=== PATIENT | male | born 1990 | race Two or more races ===

== ENCOUNTER 2017-06-23 12:33 | Day surgery (SDC) | payer OTHER ==
[~2017-06-23 12:33] MED LIST: Buffered Lidocaine 0.9% SYRIN* 5 ML/SYR SYRINGE INTRADERM ONE
[2017-06-23] MEDS ORDERED: fentaNYL* 50 MCG/ML 2 ML VIAL (100 MCG VIAL) ONE (15:03)
[2017-06-23] MEDS ORDERED: Midazolam* 1 MG/ML 2 ML VIAL (2 MG) ONE (15:03)
[2017-06-23] MEDS ORDERED: Propofol* 10 MG/ML 20 ML BTL IV PUSH ONE (15:23)
[2017-06-23] MEDS ORDERED: Lidocaine 2% PF * 5 ML VIAL ONE (15:23)
[2017-06-23] MEDS ORDERED: Ondansetron INJ* 2 MG/ML VIAL ONE (15:26)
[2017-06-23 16:37] VITALS: BP 136/71
--- NOTE | 2017-06-24 12:20 | PRO ---
CC: Dr. Paul Galloway; Dr. Julio César Gill PROCEDURE REPORT: DATE OF PROCEDURE: 06/23/17 PROCEDURE: Esophagogastroduodenoscopy with biopsy. ASSISTANTS: Rosa Lei RN and Carolina Strong RN. REFERRING PHYSICIAN: Julio César Gill MD ANESTHESIA TYPE: MAC. INDICATIONS: A 26-year-old morbidly obese gentleman with complaint of heartburn, regurgitation, and intermittent dysphagia with sensation of food sticking in the throat. He has not been taking any ant acids or proton pump inhibitors at present. The patient is also planning to undergo bariatric surgery in next few months. PROCEDURE DESCRIPTION: After explaining the risks, benefits, alternatives as well as complications o f the procedure, written consent was obtained from the patient. With the patient in left lateral decu bitus position, medications were administered by the anesthesiologist. Olympus gastroscope was inser chantal into the mouth and directed into the esophagus, stomach and all the way up to second portion of d uodenum without difficulty. Mucosa was examined both on insertion and withdrawal. Retroflexion was p erformed at the gastric fundus. The findings are given as below. The patient tolerated the procedure well and was sent to Recovery in stable condition. FINDINGS: Esophagus: The mucosa was now without erosions or ulcerations. Z-line was regular and loc ated at 40 cm from incisors. Stomach: Mild, but diffuse erythema in the gastric antrum, biopsies were taken to rule out H. pylori infection. No erosions or ulcerations are found. Retroflexion of the gastric fundus revealed gibson l appearing mucosa and cardia. Duodenum: The mucosa was normal without erosions or ulcerations up to second portion. IMMEDIATE COMPLICATION: None. BLOOD LOSS: Trace. IMPRESSION: Mild antral gastritis, biopsied. RECOMMENDATIONS: 1. Advised to start omeprazole 20 mg daily before breakfast for the next 2 to 3 months. 2. Check pathology results. 3. If symptoms persist, followup in our office otherwise with primary care provider. [id number]/[facility] #: [id number]
== END 2017-06-23 16:30 | disposition home or self-care (01) ==
LOC: OR 12:33
PROVIDERS: ATTEND Internal Medicine Gastroenterology
DX: K21.9 Gastro-esophageal reflux disease without esophagitis (principal); E66.01 Morbid (severe) obesity due to excess calories; R13.14 Dysphagia, pharyngoesophageal phase; R19.7 Diarrhea, unspecified; G47.33 Obstructive sleep apnea (adult) (pediatric); Z68.44 Body mass index [BMI] 60.0-69.9, adult
CPT/HCPCS: 88305; J2250; J2405; J2704; J3010

== ENCOUNTER 2018-10-31 09:46 | Day surgery (SDC) | payer OTHER ==
[~2018-10-31 09:46] MED LIST changes: -Buffered Lidocaine 0.9% SYRIN* 5 ML/SYR SYRINGE INTRADERM ONE; +Buffered Lidocaine 1% SYRIN* 1 ML/SYRINGE INTRADERM ONE; +Lactated Ringers 1000 ML Bag* 1,000 ML IV SCH; +Sodium Citrate/Citric Acid* 15 ML UDC PO ONE
[2018-10-31] MEDS ORDERED: Heparin VIAL(*) 5000 UNITS/ML VIAL (FIVE THOUSAND) ONE (10:14)
[2018-10-31] MEDS ORDERED: Clindamycin 900 MG IVPREMIX(* 900 MG/50 ML SDV IV ONE (10:14)
[2018-10-31] MEDS ORDERED: Sodium Citrate/Citric Acid* 15 ML UDC ONE (10:14)
[2018-10-31] MEDS ORDERED: Buffered Lidocaine 1% SYRIN* 1 ML/SYRINGE INTRADERM ONE (10:14)
[2018-10-31] MEDS ORDERED: Ciprofloxacin 400MG IVPREMIX(* 400 MG/200 ML BAG ONE (10:14)
[2018-10-31] MEDS ORDERED: Bupivacaine 0.25% EPI 200,000* 30 ML SDV ONE ×2 (11:47→12:50)
[2018-10-31] MEDS ORDERED: Methylene Blue 0.5 %* 50 MG/10 ML AMP IV ONE (11:47)
[2018-10-31] MEDS ORDERED: Sugammadex * 500 MG/5 ML VIAL IV PUSH ONE (12:20)
[2018-10-31] MEDS ORDERED: Propofol* 10 MG/ML 20 ML BTL ONE (12:20)
[2018-10-31] MEDS ORDERED: fentaNYL* 50 MCG/ML 2 ML VIAL (100 MCG VIAL) ONE ×2 (12:20→14:29)
[2018-10-31] MEDS ORDERED: Rocuronium* 10 MG/ML VIAL ONE (12:22)
[2018-10-31] MEDS ORDERED: KETAMINE HCL* 50 MG/ML 10 ML VIAL ONE (12:47)
[2018-10-31] MEDS ORDERED: Ketorolac INJ* 30 MG/ML 1 ML VIAL ONE (12:50)
[2018-10-31] MEDS ORDERED: Ondansetron INJ* 2 MG/ML VIAL ONE (12:50)
[2018-10-31] MEDS ORDERED: Dexamethasone IV* 4 MG/ML 1 ML (4 MG) ONE (12:50)
[2018-10-31] MEDS ORDERED: Acetaminophen IV 1GM/100ML * 1,000 MG/100 ML VIAL IVPB ONE (14:24)
[2018-10-31] MEDS ORDERED: DiMENhydriNATE IV* 50 MG/ML VIAL IV PUSH PRN (14:24)
[2018-10-31] MEDS ORDERED: Naloxone* 0.4 MG/ML 1 ML VIAL IV PRN (14:24)
--- NOTE | 2018-10-31 14:28 | OP ---
Operative Report - Blank - Operative Report Date of Operation: 10/31/18 Note: Brief Operative Note Preop Dx: Morbid obesity Postop Dx: same Procedure: Laparoscopy Anesthesia: GET Surgeon: Jackie Manager Of School: DESI Dugan; MANUEL Sanderson Fluids: 2 liters RL EBL: < 20 ml Specimen: none Drains: none Findings: dictated
[2018-10-31] MEDS ORDERED: Acetaminophen IV 1GM/100ML * 100 ML ONE (14:29)
[2018-10-31] MEDS ORDERED: DiMENhydriNATE IV* 50 MG/ML VIAL ONE (14:29)
[2018-10-31] MEDS ORDERED: oxyCODONE/Acetamin 5/325 MG* TAB PO PRN (14:30)
[2018-10-31] MEDS: fentaNYL* 50 MCG/ML 2 ML VIAL (100 MCG VIAL) IV PRN ×4 (14:31→15:17)
[2018-10-31 16:02] VITALS: BP 123/66
--- NOTE | 2018-10-31 23:58 | OP ---
CC: [facility] for Metabolic and Bariatric Surgery; Primary Care Physician * DATE OF OPERATION: 10/31/18 - ROOM #AA-[id number] DATE OF : [birth year] SURGEON: Reg Mejia MD ASSISTANTS: DESI Otero and PA sabra, Kin. ANESTHESIOLOGIST: Dr. Odom. ANESTHESIA: General anesthesia. PRE-OP DIAGNOSIS: Clinically severe obesity. POST-OP DIAGNOSIS: Clinically severe obesity. OPERATIVE PROCEDURE: Laparoscopy and no additional procedures given the patient 's body habitus. ESTIMATED BLOOD LOSS: Less than 20 cc of blood loss. FLUIDS: 2 L of crystalloid fluid given. SPECIMEN: None. DRAINS: None. DESCRIPTION OF PROCEDURE: The patient was identified in the preoperative area, the case was discussed with him again and the patient was marked and consent was signed. He was then taken to the operating room, placed on the operating table in supine position. Preoperative antibiotics were given. Sequential devices were placed in bilateral lower extremities. General anesthesia was induced. The patient's abdomen was prepped and draped in the standard surgical fashion after clipping hair and a time-out was performed. Folds of the umbilicus were elevated anteriorly and a Veress needle inserted into the abdominal cavity, which was then allowed to insufflate to a pressure of 15 mmHg. The patient tolerated the insufflation well. Aline between the xiphoid and the umbilicus just left of midline, a 12 mm trocar on an Optiview was then inserted. Laparoscope was inserted through this. There was significant torque on the abdominal wall. We had to look around in the abdomen to see a significant amount of omentum and a very large liver. We then placed a 12 mm and a 5 mm in the left upper quadrant. We then placed a 12 mm in the right upper quadrant. The patient was placed in a steep reverse Trendelenburg. Again, a very large omentum was identified. There was no free fluid. The left lateral lobe of the liver extended beyond the spleen, which was also enlarged. Next, a Cassy retractor was inserted through the subxiphoid incision and the liver which was bulky was attempted to be retracted the best we could anteriorly into the right. We did move this on a couple of occasions just to get a good view. There was no injury to the liver upon doing this. We were able to see the angle of His and dissected this bluntly mostly, but also utilized some scissoring to see best the left crura. We could see the diaphragm at the site and we could move the spleen somewhat laterally, but overall this was very difficult and poor visualization. I placed another 12 mm trocar in the left upper quadrant, hoping to find a better access site for visualization and this was no better. Significant torque on the abdominal wall was also addressed with changing of the trocars and placing them in alternate ways to help with this and another 5 mm trocar was placed in the right upper quadrant. Next, the transverse colon was identified, this was retracted anteriorly and the ligament of Treitz was identified. We counted off approximately 50 cm to see how the small bowel would come up to the proximal stomach. This seemed fair enough, but again was complicated with the ability to retract given the patient's body habitus and the abdominal wall. We did place the pressure of 17 mmHg for the abdominal gas and again, this proved no better and at this point, I felt that it would be more prudent to stop the procedure and make a second attempt after the patient made another attempt at more significant weight loss. The Cassy retractor was removed. The liver fell back into its normal positioning. There was no bleeding. Hemostasis was excellent. We allowed the abdomen to collapse. Trocars were removed under direct vision. All incisions were reapproximated with 4-0 Monocryl subcuticular sutures followed by Steri- Strips and sterile dressing. The patient was woken up and transferred to the PACU in stable condition. [id number]/[facility] #: [id number] ALIX
[2018-11-01] MEDS ORDERED: oxyCODONE/Acetamin 5/325 MG* TAB PO PRN (14:17)
[2018-11-01] MEDS ORDERED: Naloxone* 0.4 MG/ML 1 ML VIAL IV PRN (14:17)
== END 2018-10-31 16:32 | disposition home or self-care (01) ==
LOC: OR 09:46 → AA 09:46 → UNDOADMIN 09:46 → OR 16:32
PROVIDERS: ATTEND Surgery
DX: E66.01 Morbid (severe) obesity due to excess calories (principal); Z53.09 Procedure and treatment not carried out because of other contraindication; Z68.44 Body mass index [BMI] 60.0-69.9, adult; I10 Essential (primary) hypertension; G47.33 Obstructive sleep apnea (adult) (pediatric)
CPT/HCPCS: 49320; A9270-GY; J0744; J1100; J1240; J1644; J1885; J2405; J2704; J3010

== ENCOUNTER 2019-05-28 07:30 | Inpatient (IN) | payer OTHER ==
[2019-09-24] MEDS ORDERED: Buffered Lidocaine 1% SYRIN* 1 ML/SYRINGE INTRADERM ONE (11:47)
[2019-09-25] MEDS ORDERED: Dexamethasone IV* 4 MG/ML 1 ML (4 MG) IV SLOW PU ONE (06:00)
[2019-09-25] MEDS ORDERED: Famotidine IV* 10 MG/ML 2 ML (20 mg) IV ONE (06:00)
[2019-09-25] MEDS ORDERED: Ondansetron INJ* 2 MG/ML VIAL IV ONE (06:00)
[2019-09-25] MEDS ORDERED: Lactated Ringers 1000 ML Bag* 1,000 ML IV SCH (06:00)
[2019-09-25] MEDS ORDERED: Naloxone* 0.4 MG/ML 1 ML VIAL IV PRN (06:04)
[2019-09-25] MEDS ORDERED: DiMENhydriNATE IV* 50 MG/ML VIAL IV PUSH PRN (06:04)
[2019-09-25] MEDS ORDERED: PROCHLORPERAZINE INJ 5 MG/ML 2 ML VIAL IV PRN (06:04)
--- OUTSIDE RECORDS SUMMARY | 2019-09-25 12:20 | XMS REPORT | Continuity of Care Document ---
:1990 External Reference #:[id number] Author Name Gallo Warren MD Address [address] [place] [address] Care Team Providers Name Role Phone Gallo Warren MD - Family Care Team Information Rough Patcher [phone] Medicine Problems Description No Information Available Social History Type Date Description Comments Sex Unknown ETOH Use Denies alcohol use Allergies, Adverse Reactions, Alerts Active Allergies Reaction Severity Comments Date Ibuprophen rash 08/15/2019 Amoxicillin rash 08/15/2019 Medications Active Medications SIG Qnty Indications Ordering Provider Date Fluoxetine HCL 1 by mouth every 30caps F33.9 Gallo Caicedo 08/15/2019 10mg day MD Briana Capsules Phentermine HCL 1 by mouth every Unknown 37.5mg day Capsules Zolpidem Tartrate take one tablet Unknown 10mg by mouth at Tablets bedtime as needed for sleep Immunizations Description No Information Available Vital Signs Date Vital Result Comment 08/15/2019 10:47am BP Systolic 124 mmHg BP Diastolic 80 mmHg Heart Rate 80 /min Body Temperature 98.8 F Respiratory Rate 16 /min Height 67.5 inches 5'7.50" Weight 412.00 lb BMI (Body Mass Index) 63.6 kg/m2 Results Description No Information Available Procedures Description No Information Available Medical Devices Description No Information Available Encounters Description No Information Available Assessments Date Code Description Provider 08/15/2019 F33.9 Major depressive disorder, recurrent, Gallo Warren MD unspecified 08/15/2019 E66.8 Other obesity Gallo Warren MD Plan of Treatment Future Appointment(s):09/13/2019 10:00 am - Gallo Warren MD at [facility]9508/15/2019 - Gallo Warren MDF33.9 Major depressive disorder, recurrent, unspecifiedNew Medication:Fluoxetine HCL 10 mg - 1 by mouth every dayFollow up:4-6 weeks.E66.8 Other obesityAllComments:Medication Management Patient Understands medications he's taking? Yes No Are there Barriersto Adherence? Yes No Has the patient been asked about herbal supplements and therapies, and OTC meds? Yes No Functional Status Description No Information Available Mental Status Description No Information Available Referrals Description No Information Available
[2019-09-25] MEDS ORDERED: fentaNYL* 50 MCG/ML 5 ML VIAL (250 MCG VIAL) ONE (12:37)
[2019-09-25] MEDS ORDERED: Rocuronium* 10 MG/ML VIAL ONE (12:37)
[2019-09-25] MEDS ORDERED: Midazolam* 1 MG/ML 5 ML VIAL (5 MG) ONE (12:37)
[2019-09-25] MEDS ORDERED: KETAMINE HCL* 50 MG/ML 10 ML VIAL ONE (12:37)
[2019-09-25] MEDS ORDERED: Ondansetron INJ* 2 MG/ML VIAL ONE (12:45)
[2019-09-25] MEDS ORDERED: Clindamycin 900 MG/D5W BAG(*) 900 MG/50 ML BAG IVPB ONE (12:45)
[2019-09-25] MEDS ORDERED: Heparin VIAL(*) 5000 UNITS/ML VIAL (FIVE THOUSAND) ONE (12:45)
[2019-09-25] MEDS ORDERED: Dexamethasone IV* 4 MG/ML 1 ML (4 MG) ONE (12:45)
[2019-09-25] MEDS ORDERED: Famotidine IV* 10 MG/ML 2 ML (20 mg) ONE (12:46)
[2019-09-25] MEDS ORDERED: Bupivacaine 0.5% W/EPI SDV* 30 ML VIAL ONE (14:39)
[2019-09-25] MEDS ORDERED: Sugammadex * 500 MG/5 ML VIAL IV PUSH ONE (15:03)
[2019-09-25] MEDS ORDERED: Propofol* 10 MG/ML 20 ML BTL ONE (15:03)
[2019-09-25] MEDS ORDERED: ACETAMINOPHEN 1 GM/100 ML ONE (15:11)
[2019-09-25] MEDS ORDERED: HYDROmorphone INJ1* 1 MG/ML SYRINGE ONE ×2 (15:13→18:21)
[2019-09-25] MEDS ORDERED: Phenylephrine 40 MCG/ML SYRINGE ONE (16:23)
[2019-09-25] MEDS ORDERED: HYDROmorphone INJ* 0.5 MG/0.5 ML SYRINGE IV SLOW PU PRN (17:02)
--- NOTE | 2019-09-25 17:02 | OP ---
Operative Report - Blank - Operative Report Date of Operation: 09/25/19 Note: Pre-OP Diagnoses: Clinically severe obesity Post-op Diagnosis: same Procedure: Laparoscopic sleeve gastrectomy Surgeon: Jackie Bettst: Ritchie Anethesia: GETA EBL: 50cc IVF: 2000cc LR Specimen: portion of stomach Drains: #10 JENNIFER drain
[2019-09-25] MEDS ORDERED: DiMENhydriNATE IV* 50 MG/ML VIAL ONE (17:21)
[2019-09-25] MEDS ORDERED: fentaNYL* 50 MCG/ML 2 ML VIAL (100 MCG VIAL) ONE ×2 (17:21→18:03)
[2019-09-25] MEDS: fentaNYL* 50 MCG/ML 2 ML VIAL (100 MCG VIAL) IV PRN ×4 (17:24→18:55)
[2019-09-25] MEDS ORDERED: PROCHLORPERAZINE INJ 5 MG/ML 2 ML VIAL ONE (18:03)
[2019-09-25] MEDS: HYDROmorphone INJ1* 1 MG/ML SYRINGE IV PRN ×2 (18:21→18:48)
[2019-09-25] MEDS: Lactated Ringers 1000 ML Bag* 1,000 ML IV SCH (20:03)
[2019-09-25] MEDS ORDERED: diPHENhydraMINE IV* 50 MG/ML 1 ml VIAL (BENADRYL) IV PRN (20:58)
[2019-09-25] MEDS: Ketorolac INJ* 30 MG/ML 1 ML VIAL IV SCH (21:50)
[2019-09-25] MEDS: Ondansetron INJ* 2 MG/ML VIAL IV PRN (21:52)
[2019-09-26] MEDS: Ketorolac INJ* 30 MG/ML 1 ML VIAL IV SCH ×5 (00:44→21:58)
[2019-09-26] MEDS: Lactated Ringers 1000 ML Bag* 1,000 ML IV SCH ×3 (02:45→17:33)
--- NOTE | 2019-09-26 03:20 | OP ---
CC: [facility] for Metabolic and Bariatric Surgery; Dr. Warren OPERATIVE REPORT: DATE OF OPERATION: 09/25/19 DATE OF : [birth year] SURGEON: Reg Mejia MD. S IRON WORKER: DESI Otero. ANESTHESIOLOGIST: Dr. Sorensen. ANESTHESIA: General anesthesia. PRE-OP DIAGNOSIS: Clinically severe obesity. POST-OP DIAGNOSIS: Clinically severe obesity. OPERATIVE PROCEDURE: Laparoscopic sleeve gastrectomy. BLOOD LOSS: 50 cc. FLUIDS: 2 L of crystalloid fluid given. SPECIMEN: Portion of stomach. DRAIN: #10 JENNIFER drain left along the sleeved stomach. COUNTS: Lap pad count and instruction count correct at the end of the procedure. CONDITION: The patient transferred to the PACU in stable condition. DESCRIPTION OF PROCEDURE: The patient was identified in the preoperative area. Discussed the case wi th him and consent was signed. The patient was marked. He was weighed preop and he was 400 pounds. The patient was taken to the operating room, placed on the operating table in supine position. Preo perative antibiotics given. Sequential devices placed on bilateral lower extremities. General anest hesia was induced. The patient's abdomen was prepped and draped in standard surgical fashion. Time- out was performed. Folds of the umbilicus were elevated anteriorly and a Veress needle inserted into the abdominal cavit y, which was then allowed to insufflate to a pressure of 15 mmHg. The patient tolerated the insuffla tion well. An optical 5-mm trocar was then placed along the upper midline. Once we were in with thi s 5-mm trocar, it was obvious we would need longer trocar and these were utilized. We placed two 5 m m in the left upper quadrant and we replaced the 5 mm in the midline with a 12-mm long trocar as well and a 12-mm long trocar at the right upper quadrant. Review of the abdomen showed no bleeding. The Veress needle was identified, removed, and showed, no evidence of injury to adjacent organs. We then placed the patient in a steep reverse Trendelenburg a nd a large liver was identified. This was retracted anteriorly into the right with Cassy retract or inserted through a subxiphoid incision. This allowed us to see the gastroesophageal fat pad, whic h was not robust; however, the spleen was quite large and we reflected this superiorly and pulled on the stomach to review the short gastrics to see if we could make clearance at the site. When I felt comfortable, we then approached the hiatus. It was difficult to get a good purchase with the 12-mm r ight upper quadrant port and so we placed another 5-mm port just superior to this at the right upper quadrant. At this point, we then held the gastroesophageal fat pad and bluntly dissected posterior a nd superior to this at the space over the left crura. There appeared to be no hiatal hernia. We then turned our attention to the pylorus. We marked out about 6 cm proximal to the pylorus along the gre ater curvature and made a retrogastric window. The LigaSure device was used to take the vasculature to the greater curvature at the spot right up to the previously dissected area on the left crura. Po sterior attachments were taken down with both sharp and blunt dissection along with intermittent caut eduardo as needed until the stomach could be rotated on its axis. Next, a sleeve stomach was created. We placed a 40-Greek bougie into the distal stomach and placed a 60-mm purple GLADIS stapling device with reinforcement strips at approximately 6 cm proximal to the py lorus and extended it towards the incisura. Prior to firing this, we assured that we would rub agains t the bougie. We then fired this and then additional 60-mm purple GLADIS stapling device with reinforce ment strips were needed to complete this sleeve staying close to the bougie, at some point sawtoothin g this as we turn the corner making sure that the staple lines stayed true without corkscrewing. The very last firing was performed with the bougie out and it was only about 1 cm. The distal portion o f the staple line showed it was not on the diaphragm; however, I did oyster picker some of the capsule of t he spleen. With stomach fully transected, I cut this off and removed it from the spleen where a port ion of the staple line with reinforcement straps were attached. There was minimal oozing at the site, and we were able to place the stomach in an endoscopic retrieval bag. I placed Surgicel at the stap le line over the portion of the spleen and hemostasis was achieved with this but we held that in plac e while we took the specimen out through the right upper quadrant 12-mm port site. The specimen was passed off and we placed the patient back into the steep reverse Trendelenburg positioning. We looke d at the spleen. There was no bleeding from the site. We then placed a #10 JENNIFER drain into the abdome n, brought it out through the 5-mm right upper quadrant port site. I placed it along the staple line right up to the angle of His and sutured to the skin with 3-0 Prolene suture. Next, the 12-mm right upper quadrant port site that had been dilated to get the specimen out was clos ed, the fascial layer with an 0 Vicryl suture using a Weck closure device. Next, the abdomen was allowed to collapse, trocars removed and all additional incisions reapproximate d with 4-0 Monocryl subcuticular sutures followed by Steri- Strips and sterile dressing. The patient tolerated the procedure well and was transferred to the PACU in stable condition. [id number]/[facility] #: [id number]
[2019-09-26] MEDS: Ondansetron INJ* 2 MG/ML VIAL IV PRN (04:00)
[2019-09-26] MEDS: Heparin VIAL(*) 5000 UNITS/ML VIAL (FIVE THOUSAND) SUBCUT SCH ×3 (06:08→21:59)
[2019-09-26 06:21] LABS: ABS Lymphocytes 0.8 10^3/ul (1.0-4.8); ABS Monocytes 0.7 10^3/ul (0-0.8); ABS Neutrophils 8.6 10^3/ul (1.5-7.7); Hematocrit 42 % (42-52); Hemoglobin 14.7 g/dL (14.0-18.0); Lymphocyte % 8.4 %; Mean Corpuscular HGB Conc 35 g/dL (31-36); Mean Corpuscular Hemoglobin 31 pg (27-31); Mean Corpuscular Volume 89 fL (80-94); Mean Platelet Volume 8.4 fL (7.4-10.4); Platelet Count 240 10^3/uL (150-450); Red Blood Count 4.72 10^6 /uL (4.18-5.48); Red Cell Distribution Width 14 % (10-15); White Blood Count 10.1 10^3/uL (3.5-10.8)
--- NOTE | 2019-09-26 12:24 | PN ---
Progress Note - Progress Note Date of Service: 09/26/19 SOAP: Subjective: patient seen and examined. No new complaints. He was able to sleep overnight. Some flatus. No nausea or vomiting. Some abdominal pain. Objective: Temp Pulse Resp BP Pulse Ox 97.8 F 99 16 129/59 99 09/26/19 11:01 09/26/19 11:01 09/26/19 11:01 09/26/19 11:09/26/19 11:01 alert and oriented 3, no apparent distress lungs clear abdomen: Soft, obese, tender on deep palpation in the epigastrium. JENNIFER drain with serous output. Dressings intact. Extremities within normal limits. CBC reviewed. Assessment: Postop day 1, sleeve gastrectomy, hemodynamically stable. Plan: Upper GI today. DVT and GI prophylaxis. Pain control
[2019-09-26] MEDS: D5W 1/2 NS KCl 20 Meq 1000 ML* 1,000 ML IV SCH (20:00)
[2019-09-27] MEDS: D5W 1/2 NS KCl 20 Meq 1000 ML* 1,000 ML IV SCH (02:42)
[2019-09-27] MEDS: Ketorolac INJ* 30 MG/ML 1 ML VIAL IV SCH ×2 (03:54→10:08)
[2019-09-27] MEDS: Heparin VIAL(*) 5000 UNITS/ML VIAL (FIVE THOUSAND) SUBCUT SCH (05:54)
[2019-09-27 11:08] VITALS: BP 134/78
--- NOTE | 2019-09-27 23:43 | DS ---
CC: Primary care doctor; Metabolic and Bariatric Surgery DISCHARGE SUMMARY: DATE OF ADMISSION: DATE OF DISCHARGE: 09/27/19 HOSPITAL COURSE: Mr. Giordano is a 28-year-old gentleman who was worked up as an outpatient with clin ically severe obesity, presented on the same day of surgery and underwent a laparoscopic sleeve gastr ectomy. Please see operative report for details. In the postoperative period, the patient was transferred to the PACU and then onto short-stay surgica l unit where he was maintained on NPO status. He had a JENNIFER drain in and this was recorded. On postoperative day 1, the patient was doing well, underwent upper GI study which was within normal limits, and the patient was started on bariatric liquid diet. This was tolerated well, and by postope rative day #2, the patient was doing well with plan to discharge home. On the day of discharge, the patient was examined. He was afebrile. Vital signs were stable. Alert and oriented x3, in no appare nt distress. Head, ears, eyes, nose, and throat: Normocephalic, atraumatic. Sclerae are anicteric. Mucous membranes are moist. Lungs: Clear to auscultation bilaterally. Abdomen: Soft, obese. Mi ld tenderness in the epigastrium at the incision site. Dressings removed. JENNIFER drain with serous outp ut also removed and a dressing applied at the site. No ecchymosis. No erythema. Rectal exam not pe rformed. Extremities: Within normal limits. On postoperative day 2 of laparoscopic sleeve gastrectomy, plan is to discharge home. The patient wi ll continue with the previous medications, but he does not have to restart his vitamins for another w [place]. He has a followup appointment with my office and he has been already seen by the bariatric rafa hough. The patient understands the plan, and he will continue with bariatric diet and he will be dis charged home in stable condition. [id number]/[facility] #: [id number]
== END 2019-09-27 14:00 | disposition home or self-care (01) | DRG 403 ==
LOC: AA 09-25 12:15 → SSU 09-25 19:41
PROVIDERS: ADMIT Surgery; ATTEND Surgery
PROC: 0DB64Z3 Excision of Stomach, Percutaneous Endoscopic Approach, Vertical (ICD-10-PCS; principal; 2019-09-25 15:00)
DX: E66.01 Morbid (severe) obesity due to excess calories (principal); K76.0 Fatty (change of) liver, not elsewhere classified; E55.9 Vitamin D deficiency, unspecified; I10 Essential (primary) hypertension; G47.33 Obstructive sleep apnea (adult) (pediatric); Z68.43 Body mass index [BMI] 50.0-59.9, adult; Z88.0 Allergy status to penicillin; Z88.6 Allergy status to analgesic agent
CPT/HCPCS: 36415; 43775; 74246; 85025; 88307; J0780; J1100; J1170; J1200; J1240; J1644; J1885; J2250; J2405; J2704; J3010